=== PATIENT | female | born 1950 | race Caucasian/White ===

== ENCOUNTER 2018-05-24 12:56 | Outpatient (CLI) | payer MEDICARE ==
--- NOTE | 2018-05-24 13:29 | RAD ---
PA AND LATERAL CHEST: Date: 05/24/18 HISTORY: Dyspnea. FINDINGS: Cardiac silhouette and pulmonary vasculature are within normal limits. Lungs are clear. Vascular calc ification seen in thoracic and visualized abdominal aorta. Calcification overlies the left upper quad rant, which cannot be further localized on this exam but appears anterior and may be within a loop of bowel. Mild degenerative changes are seen in the spine. IMPRESSION: No acute cardiopulmonary process. POS: [facility]
== END 2018-05-24 12:57 | disposition home or self-care (01) ==
LOC: RAD 12:56
PROVIDERS: ATTEND Internal Medicine Critical Care Medicine
DX: R06.00 Dyspnea, unspecified (principal)
CPT/HCPCS: 71046